=== PATIENT | male | born 1975 | race Caucasian/White ===

== ENCOUNTER → 2020-03-02 | Outpatient (CLI) | payer OTHER ==
[~2020-03-02] MED LIST: ADERAL; ADHD MED; ALBIPROI INH; ALBU90OI; ALBU90OI INH; AMOX500 PO; AMPDEX10; AMPDEX10 PO; AMPDEX10CR; ATOM40; AZIT250 PO; CEPH500 PO; CODACE30 PO; CODGUAEL PO; CYCL10 PO; DIAZ5 PO; DIPATR PO; DIVA500EC PO; DOXY100 PO; ERYT.5TO OS; ERYT500 PO; FAMO20 PO; GUAI600ER PO; GUAI600T33; GUAI600T33 PO; HYDACE10B PO; HYDACE5 PO; HYDACE5325; HYDACE5325 PO; HYDGUAL120 PO; IBUP600 PO; IBUP800 PO; LORA1 PO; METPHE20ER; NAPR500; NAPR500 PO; OXYACE5T PO; PENVK500 PO; PRED20 PO; PROM25 PO; RXCLIN PO; RXHYDACE PO; RXLORA1 PO; RXPROACE PO; STRATTERA; SULTRIDS; SULTRIDS PO; TOBDEXOPO OP; TOBR.3OPO OP; TRAACE; TRAM50; TRAM50 PO; VIVANCE; VIVANCE PO; VYVANSE PO; ZINC50TA2
[2020-03-04 08:08] LABS: HBSAG SCREEN Negative (Negative); HEP A AB, IGM Negative (Negative); HEP B CORE AB, IGM Negative (Negative); HEP C VIRUS AB <0.1 (0.0-0.9); HIV SCREEN 4TH GENERATION WRFX Non Reactive (Non Reactive)
[2020-03-04 23:11] LABS: CHLAMYDIA TRACHOMATIS, NAA Negative (Negative)
== END | disposition home or self-care (01) ==
LOC: LAB SHORT 16:47 → LAB 16:47
PROVIDERS: Physician Assistant Surgical
DX: Z72.51 High risk heterosexual behavior (principal)
CPT/HCPCS: 80074; 86592; 87389; 87491; 87591

== ENCOUNTER → 2020-05-27 | Outpatient (CLI) | payer OTHER ==
[2020-05-29 07:11] LABS: CHLAMYDIA BY NAA Negative (Negative); GONOCOCCUS BY NAA Negative (Negative); TRICH VAG BY NAA Negative (Negative)
== END | disposition home or self-care (01) ==
LOC: LAB 14:20 → LAB SHORT 14:20
PROVIDERS: Family Medicine
DX: Z20.2 Contact with and (suspected) exposure to infections with a predominantly sexual mode of transmission (principal)
CPT/HCPCS: 87491; 87591; 87661

== ENCOUNTER 2020-09-13 23:41 | Emergency (ER) | payer OTHER ==
[~2020-09-13] VITALS: Ht 170.2 cm; Wt 81.7 kg
[2020-09-14] MEDS ORDERED: ERYT1OIN RIGHTEYE (01:34)
== END 2020-09-14 01:46 | disposition home or self-care (01) ==
LOC: ER 23:41
DX: H57.11 Ocular pain, right eye (principal); F17.210 Nicotine dependence, cigarettes, uncomplicated
CPT/HCPCS: 99283; A9270

== ENCOUNTER 2020-12-15 14:14 | Emergency (ER) | payer OTHER ==
[~2020-12-15] VITALS: Ht 182.9 cm; Wt 92.1 kg
[~2020-12-15 14:14] MED LIST changes: +ERYT1OIN RIGHTEYE
[2020-12-15] MEDS ORDERED: AMOCLA875 PO (16:58)
== END 2020-12-15 17:15 | disposition home or self-care (01) ==
LOC: ER 14:14
DX: S61.052A Open bite of left thumb without damage to nail, initial encounter (principal); S51.852A Open bite of left forearm, initial encounter; F17.200 Nicotine dependence, unspecified, uncomplicated; Z88.8 Allergy status to other drugs, medicaments and biological substances; W54.0XXA Bitten by dog, initial encounter
CPT/HCPCS: 12001; 36415; 99283-25; A9270

== ENCOUNTER → 2021-01-06 | Outpatient (CLI) | payer OTHER ==
[~2021-01-06] MED LIST changes: +AMOCLA875 PO
[2021-01-08 02:07] LABS: CHLAMYDIA TRACHOMATIS, NAA Negative (Negative)
== END ==
LOC: LAB SHORT 14:49 → LAB 14:49
PROVIDERS: Family Medicine
DX: R30.0 Dysuria (principal); Z88.8 Allergy status to other drugs, medicaments and biological substances
CPT/HCPCS: 87491; 87591

== ENCOUNTER 2021-02-22 05:42 | Emergency (ER) | payer OTHER ==
[~2021-02-22] VITALS: Ht 182.9 cm; Wt 91.6 kg
[2021-02-22 07:43] LABS: Influenza A, PCR NEGATIVE (NEGATIVE); Influenza B, PCR NEGATIVE (NEGATIVE); Resp Syncytial Virus, PCR NEGATIVE (NEGATIVE)
[2021-02-22 07:53] LABS: SARS-Cov-2 (COVID-19) PCR, MMC POSITIVE (NEGATIVE)
== END 2021-02-22 08:51 | disposition home or self-care (01) ==
LOC: ER 05:42
PROVIDERS: Family Medicine
DX: U07.1 COVID-19 (principal); F17.200 Nicotine dependence, unspecified, uncomplicated
CPT/HCPCS: 0241U; 99284

== ENCOUNTER → 2021-06-26 | Outpatient (CLI) | payer OTHER ==
[2021-06-26 18:29] LABS: BASOPHILS ABSOLUTE AUTO 0.04 K/mm3 (0.00-0.23); BASOPHILS PERCENT AUTO 1 % (0-2); EOSINOPHILS ABSOLUTE AUTO 0.26 K/mm3 (0.00-0.68); EOSINOPHILS PERCENT AUTO 4 % (0-6); Hematocrit 45.7 % (37.0-53.0); Hemoglobin 15.6 g/dL (13.5-17.5); IMMATURE GRAN ABSOLUTE AUTO 0.02 K/mm3 (0.00-0.10); IMMATURE GRAN PERCENT AUTO 0 % (0-1); LYMPHOCYTES ABSOLUTE AUTO 1.48 K/mm3 (0.84-5.20); LYMPHOCYTES PERCENT AUTO 21 % (21-46); MONOCYTES ABSOLUTE AUTO 0.58 K/mm3 (0.16-1.47); MONOCYTES PERCENT AUTO 8 % (4-13); Mean Corpuscular HGB 30.2 pg (26.0-34.0); Mean Corpuscular HGB Conc 34.1 g/dL (31.5-36.5); Mean Corpuscular Volume 89 fL (80-100); NEUTROPHILS ABSOLUTE AUTO 4.58 K/mm3 (1.96-9.15); NEUTROPHILS PERCENT AUTO 66 % (41-73); Platelet Count 310 K/mm3 (150-400); RDW Coefficient Variation 12.2 % (11.7-14.2); RDW Standard Deviation 40.4 fL (35.1-46.3); Red Blood Cell Count 5.16 M/mm3 (4.30-5.90); White Blood Cell Count 6.96 K/mm3 (4.00-11.30)
[2021-06-26 18:38] LABS: Albumin, Blood 3.9 g/dL (3.4-5.0); Albumin/Globulin Ratio 1.2 (0.8-1.8); Bilirubin, Total 0.3 mg/dL (0.1-1.0); Calcium, Blood 9.4 mg/dL (8.5-10.1); Creatinine, Blood 0.93 mg/dL (0.60-1.20); Globulin, Blood 3.2 g/dL (2.2-4.0); Potassium, Blood 4.1 mmol/L (3.5-5.5); Total Protein, Blood 7.1 g/dL (6.4-8.2)
== END | disposition home or self-care (01) ==
LOC: LAB 18:23 → LAB SHORT 18:23
PROVIDERS: Chiropractor
DX: R10.32 Left lower quadrant pain (principal)
CPT/HCPCS: 80053; 83690; 85025

== ENCOUNTER → 2021-08-06 | Outpatient (CLI) | payer OTHER ==
[2021-08-09 00:10] LABS: HIV AB/P24 AG SCREEN Non Reactive (Non Reactive)
[2021-08-09 08:12] LABS: HBSAG SCREEN Negative (Negative); HCV AB <0.1 (0.0-0.9); HEP A AB, IGM Negative (Negative); HEP B CORE AB, TOT Negative (Negative)
== END | disposition home or self-care (01) ==
LOC: LAB SHORT 20:02 → LAB 20:02
PROVIDERS: Chiropractor
DX: Z20.9 Contact with and (suspected) exposure to unspecified communicable disease (principal); Z72.51 High risk heterosexual behavior
CPT/HCPCS: 86592; 86694; 86695; 86696; 86704; 86708; 86803; 87340; 87389

== ENCOUNTER → 2021-08-07 | Outpatient (CLI) | payer OTHER ==
[2021-08-13 10:10] LABS: CHLAMYDIA BY NAA Negative (Negative); GONOCOCCUS BY NAA Negative (Negative); TRICH VAG BY NAA Negative (Negative)
== END | disposition home or self-care (01) ==
LOC: LAB 10:26 → LAB SHORT 10:26
PROVIDERS: Chiropractor
DX: Z20.9 Contact with and (suspected) exposure to unspecified communicable disease (principal)
CPT/HCPCS: 87491; 87591; 87661

== ENCOUNTER 2022-04-27 04:36 | Emergency (ER) | payer OTHER ==
[~2022-04-27] VITALS: Ht 182.9 cm; Wt 40.8 kg
[2022-04-27] MEDS ORDERED: AMOCLA875 PO (05:25)
== END 2022-04-27 05:31 | disposition home or self-care (01) ==
LOC: ER 04:36
DX: S81.011A Laceration without foreign body, right knee, initial encounter (principal); F17.200 Nicotine dependence, unspecified, uncomplicated; W55.03XA Scratched by cat, initial encounter; Z88.8 Allergy status to other drugs, medicaments and biological substances
CPT/HCPCS: A9270